=== PATIENT | male | born 1990 | race Caucasian/White ===

== ENCOUNTER 2023-07-09 08:44 | Outpatient (CLI) | payer OTHER ==
--- NOTE | 2023-07-11 10:52 | MRI Report ---
PROCEDURE: SHOULDER WO - LT INDICATIONS: LEFT SHOULDER STRAIN TECHNIQUE: Noncontrast oblique coronal T2 fast spin echo with fat saturation, oblique sagittal T1 spin echo and T2 fast spin echo with fat saturation, axial T1 spin echo and T2 fast spin echo with fat saturation t hrough the shoulder. COMPARISON: None. FINDINGS: Image quality: Excellent. Rotator cuff: There is low-grade partial-thickness tear of the supraspinatus tendon involving the dis iris surface. Low-grade partial-thickness tear is also seen in the infraspinatus tendon with associated edema in th e infraspinous musculotendinous junction consistent with mild concomitant muscle sprain. There is mild subscapularis tendinosis without discrete tendon tear. No rotator cuff muscle atrophy . Bones and bursae: No bone marrow contusions or fractures. Mild acromioclavicular joint degeneration. The acromion demonstrates conventional anatomy, without an os acromiale. Reactive cyst formation in the posterior aspect of the humeral head deep to the infraspinatus tendon insertion. No pathologic s ubacromial/subdeltoid bursal fluid is present. Capsule and soft tissues: In the absence of intra-articular contrast, the labrum and glenohumeral li gaments appear intact. The long head of the biceps tendon demonstrates normal location and morpholog y. The rotator interval appears normal, without fibrosis. The coracohumeral ligament is normal in t hickness. IMPRESSION: 1. Low-grade partial-thickness tear of the supraspinatus tendon. 2. Low-grade partial-thickness tear of the infraspinatus tendon with associated mild sprain at the mu sculotendinous junction. 3. Mild subscapularis tendinosis. 4. Mild acromioclavicular arthrosis. Reviewed by: Joni Alexis MD on 07/11/2023 10:51 AM PST Approved by: Joni Alexis MD on 07/11/2023 10:51 AM PST Station ID: [id number]
== END 2023-07-09 08:45 | disposition home or self-care (01) ==
LOC: DI 08:44
PROVIDERS: ATTEND Student in an Organized Health Care Education/Training Program
DX: M75.112 Incomplete rotator cuff tear or rupture of left shoulder, not specified as traumatic (principal); M19.012 Primary osteoarthritis, left shoulder